=== PATIENT | female | born 1945 | race Hispanic/Latino ===

== ENCOUNTER 2020-01-27 | Emergency (ER) | payer MEDICARE, OTHER ==
[~2020-01-27] MED LIST: NO HOME MEDS
== END 2020-01-27 18:25 | disposition home or self-care (01) ==
DX: J06.9 Acute upper respiratory infection, unspecified (principal); S29.012A Strain of muscle and tendon of back wall of thorax, initial encounter; E11.9 Type 2 diabetes mellitus without complications; X58.XXXA Exposure to other specified factors, initial encounter

== ENCOUNTER 2021-07-16 08:45 | Emergency (ER) | payer MEDICARE, OTHER ==
[~2021-07-16] VITALS: Ht 157.5 cm; Wt 45.0 kg
[2021-07-16] MEDS ORDERED: PREDNISONE50 MG PO (09:30)
[2021-07-16 09:50] VITALS: BP 132/64
== END 2021-07-16 09:50 | disposition home or self-care (01) ==
LOC: ED 08:45
DX: L23.7 Allergic contact dermatitis due to plants, except food (principal); E11.9 Type 2 diabetes mellitus without complications

== ENCOUNTER 2021-08-07 11:19 | Emergency (ER) | payer MEDICARE, OTHER ==
[~2021-08-07] VITALS: Ht 157.5 cm; Wt 60.0 kg
[~2021-08-07 11:19] MED LIST changes: +PREDNISONE50 MG PO
[2021-08-07] MEDS ORDERED: MEDDOSEPAK PO (12:38)
[2021-08-07] MEDS ORDERED: VALTREX1 GM PO (12:38)
[2021-08-07] MEDS ORDERED: IBUPROFEN600 MG PO (12:38)
[2021-08-07 13:46] VITALS: BP 131/21
== END 2021-08-07 13:46 | disposition home or self-care (01) ==
LOC: ED 11:19
DX: B02.9 Zoster without complications (principal); E11.9 Type 2 diabetes mellitus without complications